=== PATIENT | female | born 1960 | race Caucasian/White ===

== ENCOUNTER 2024-03-28 00:31 | Day surgery (SDC) | payer BC, SELFPAY ==
[2024-03-13 12:03] VITALS: BMI 33.3
[2024-03-28 08:51] VITALS: BP 168/81; PULSE 95; RESP 19; TEMP 36.1; O2SAT 96
[2024-03-28] MEDS: LACTATED RINGERS 1,000 ML 150 ML IV CONT (09:03)
--- NOTE | 2024-03-28 09:54 | WPDANESEPPF ---
Anes - Initial Pre Proc Eval Procedure: Operation Date: 03/28/24 10:00 Proposed Procedures p Colonoscopy - Albino Thomas MD Date/Time: 03/28/24 09:54 Surgeon: Albino Thomas MD Pre Op Diagnosis: Positive cologuard Patient Data Age: 63 Gender: F Height: 1.65 m Weight: 92.1 kg Last Vital Signs Temp 97 F L 03/28/24 08:51 Pulse 95 03/28/24 08:51 Resp 19 03/28/24 08:51 BP 168/81 H 03/28/24 08:51 Pulse Ox 96 03/28/24 08:51 O2 Del Method Room Air 03/28/24 08:51 Allergies Allergy/AdvReac Type Severity Reaction Status Date / Time bupropion [From Contrave] Allergy Severe throat Verified 03/28/24 08:49 swelling and GI upset naltrexone [From Contrave] Allergy Severe throat Verified 03/28/24 08:49 swelling and GI upset adhesive tape Allergy Intermediate Redness of Verified 03/28/24 08:49 Skin sulfamethoxazole AdvReac Intermediate Gastrointestinal Verified 03/28/24 08:49 [From Bactrim] Upset trimethoprim [From Bactrim] AdvReac Intermediate Gastrointestinal Verified 03/28/24 08:49 Upset Home Medications Medication Instructions Recorded Confirmed Type diclofenac sodium 75 mg 75 mg PO BID 10/18/23 03/13/24 History tablet,delayed release folic acid 1 mg tablet 1 mg PO DAILY 10/18/23 03/13/24 History methotrexate sodium 5 mg tablet 25 mg PO WEEKLY 10/18/23 03/13/24 History prednisone 5 mg tablet See Rx Instructions PO DIRECTED 10/18/23 03/13/24 History hydrochlorothiazide 25 mg tablet See Rx Instructions .Route 03/07/24 03/13/24 Rx .COMPLEX #90 tabs Ellura 36 mg PO DAILY 03/13/24 03/13/24 History acetaminophen 650 mg 1,300 mg PO Q12H 03/13/24 03/13/24 History tablet,extended release esomeprazole magnesium 40 mg 40 mg PO DAILY 03/13/24 03/28/24 History capsule,delayed release [id number] 8 mg-folic 400 1 tablet PO DAILY 03/13/24 03/13/24 History mcg-K 50 mcg-lutein 300 mcg tablet (Centrum Silver Women) tramadol 50 mg tablet 50 mg PO TID PRN Pain 03/13/24 03/13/24 History Patient hx anesthesia problems: none Family hx anesthesia problems: none Results Review: All pre-operative results and documents have been reviewed as part of the pre-operative evaluation. [facility] Past Medical History Medical History Arthritis Dyslipidemia HTN (hypertension) Hypomagnesemia Mild acid reflux Osteoarthritis Overactive bladder Pre-diabetes Vitamin D deficiency Surgical History Surgical History History of carpal tunnel release History of hip replacement History of knee replacement History of tonsillectomy Family History Family History Father Lung cancer Alcoholism Hypertension Social History Social History Smoking packs per day: 1 Smoking cigarettes per day: 20.0 Years smoked: 30 Smoking pack-years: 30.00 Smoking status: Former smoker Tobacco type: cigarettes Alcohol intake: current Drinks per week: 2 Alcohol use details: DRINKS Substance use: never Substance use type: does not use Lack of Transportation: No Lack of Food: Never True Current Housing: I Have Housing Concerned About Future Housing: No Difficulty Paying Gas/Electric Bills: No Difficulty Paying for Meds: No Currently Unemployed: No Difficulty w/ Childcare or Family Care: No Living arrangements: with family Occupation/Education: retired Gender identity (if verbalized by the patient): Female Spiritual care concerns: No Anes - Eval Final PreProcedure Day of Procedure 03/28/24 09:54 Patient weight: obese Heart: regular rate and rhythm Lungs: clear to auscultation Airway: Mallampati scale class II Neurological: alert and oriented Last oral intake: >/= 8
--- NOTE | 2024-03-28 10:02 | PM.HPGS ---
History of Present Illness History of Present Illness Consent: Risks, benefits, and alternatives have been discussed and questions answered. Patient agrees to proceed with procedure. Chief complaint: Positive cologuard Narrative: Belle Amezcua is a 63 year old female with + cologuard, last colonoscopy 10 years ago Review of Systems Review of Systems: All systems reviewed & are unremarkable except as noted in HPI and below PMFSH Past Medical History Medical History (Updated 03/28/24 @ 10:06 by Albino Thomas MD) Arthritis Dyslipidemia HTN (hypertension) Hypomagnesemia Mild acid reflux Osteoarthritis Overactive bladder Positive colorectal cancer screening using Cologuard test Pre-diabetes Vitamin D deficiency Surgical History Surgical History History of carpal tunnel release History of hip replacement History of knee replacement History of tonsillectomy Family History Family History Father Lung cancer Alcoholism Hypertension Social History Social History Smoking packs per day: 1 Smoking cigarettes per day: 20.0 Years smoked: 30 Smoking pack-years: 30.00 Smoking status: Former smoker Tobacco type: cigarettes Alcohol intake: current Drinks per week: 2 Alcohol use details: DRINKS Substance use: never Substance use type: does not use Lack of Transportation: No Lack of Food: Never True Current Housing: I Have Housing Concerned About Future Housing: No Difficulty Paying Gas/Electric Bills: No Difficulty Paying for Meds: No Currently Unemployed: No Difficulty w/ Childcare or Family Care: No Living arrangements: with family Occupation/Education: retired Gender identity (if verbalized by the patient): Female Spiritual care concerns: No Meds Home Medications and Allergies Home Medications Medication Instructions Recorded Confirmed Type diclofenac sodium 75 mg 75 mg PO BID 10/18/23 03/13/24 History tablet,delayed release folic acid 1 mg tablet 1 mg PO DAILY 10/18/23 03/13/24 History methotrexate sodium 5 mg tablet 25 mg PO WEEKLY 10/18/23 03/13/24 History prednisone 5 mg tablet See Rx Instructions PO DIRECTED 10/18/23 03/13/24 History hydrochlorothiazide 25 mg tablet See Rx Instructions .Route 03/07/24 03/13/24 Rx .COMPLEX #90 tabs Ellura 36 mg PO DAILY 03/13/24 03/13/24 History acetaminophen 650 mg 1,300 mg PO Q12H 03/13/24 03/13/24 History tablet,extended release esomeprazole magnesium 40 mg 40 mg PO DAILY 03/13/24 03/28/24 History capsule,delayed release [id number] 8 mg-folic 400 1 tablet PO DAILY 03/13/24 03/13/24 History mcg-K 50 mcg-lutein 300 mcg tablet (Centrum Silver Women) tramadol 50 mg tablet 50 mg PO TID PRN Pain 03/13/24 03/13/24 History Allergies Allergy/AdvReac Type Severity Reaction Status Date / Time bupropion [From Contrave] Allergy Severe throat Verified 03/28/24 08:49 swelling and GI upset naltrexone [From Contrave] Allergy Severe throat Verified 03/28/24 08:49 swelling and GI upset adhesive tape Allergy Intermediate Redness of Verified 03/28/24 08:49 Skin sulfamethoxazole AdvReac Intermediate Gastrointestinal Verified 03/28/24 08:49 [From Bactrim] Upset trimethoprim [From Bactrim] AdvReac Intermediate Gastrointestinal Verified 03/28/24 08:49 Upset Vital Signs Vital Signs - 24 hr 03/28/24 08:51 Temperature 97 F L Pulse Rate 95 Respiratory Rate 19 Blood Pressure 168/81 H Pulse Oximetry 96 Oxygen Delivery Room Air Exam Const: General: comfortable and no acute distress HENMT: Face/Nose/Sinus: Normal nares present Eyes: General: appearance normal, both eyes and all related structures Neck: Neck: no JVD Resp: Auscultation: clear to auscultation
[2024-03-28 10:26] VITALS: BP 134/69; PULSE 89; RESP 20; O2SAT 98
[2024-03-28 10:36] VITALS: BP 121/72; PULSE 85; RESP 21; O2SAT 98
[2024-03-28 10:46] VITALS: BP 161/90; PULSE 72; RESP 20; O2SAT 100
== END 2024-03-28 10:58 | disposition home or self-care (01) ==
PROVIDERS: PCP Physician Assistant Medical; Visit Provider Internal Medicine Gastroenterology
PROC: 0DJD8ZZ Inspection of Lower Intestinal Tract, Via Natural or Artificial Opening Endoscopic (ICD-10-PCS; CPT 45378; principal; 2024-03-28 10:00)
DX: R19.7 Diarrhea, unspecified (principal); K57.30 Diverticulosis of large intestine without perforation or abscess without bleeding; K63.5 Polyp of colon; I10 Essential (primary) hypertension; E78.5 Hyperlipidemia, unspecified; K21.9 Gastro-esophageal reflux disease without esophagitis; Z87.891 Personal history of nicotine dependence; E66.9 Obesity, unspecified; Z68.33 Body mass index [BMI] 33.0-33.9, adult
CPT/HCPCS: 45385; 45380; 88305; J2704; J7120